=== PATIENT | male | born 1975 | race Caucasian/White ===

== ENCOUNTER 2019-07-05 20:06 | Emergency (ER) | payer SELFPAY ==
[~2019-07-05] VITALS: Ht 170.2 cm; Wt 63.5 kg
[2019-07-05 20:08] VITALS: Ht 170.2 cm; Wt 63.5 kg
[2019-07-05 23:17] VITALS: BP 123/69
== END 2019-07-05 23:17 | disposition home or self-care (01) ==
LOC: ED 20:06
DX: J18.9 Pneumonia, unspecified organism (principal); J20.8 Acute bronchitis due to other specified organisms; R30.0 Dysuria
CPT/HCPCS: 87804; Q0092